=== PATIENT | female | born 1945 | race Caucasian/White ===

== ENCOUNTER 2019-04-17 08:57 | Emergency (ER) | payer MEDICARE ==
[2019-04-17 09:32] VITALS: BP 138/49
--- NOTE | 2019-04-17 10:13 | UC ---
Skin Complaint HPI - HPI Summary HPI Summary: 74 y/o female presents to the urgent care c/o Tick on right bra line towards her back. removed it Claire. She felt it there but didn't think to look. Could have been on up to 1 week. It was engorged when removed. Denies body aches or headache. - History of Current Complaint Chief Complaint: UCSkin Time Seen by Provider: 04/17/19 10:06 Stated Complaint: TICK BITE Hx Obtained From: Patient ?: No - menopausal Onset/Duration: Gradual Onset - 2 days, Resolved - tick removal Skin Exposure Onset/Duration: Days Ago - 1 week possible, she is not sure Timing: Constant Onset Severity: Mild Current Severity: Mild Pain Intensity: 2 Pain Scale Used: 0-10 Numeric Location: Discrete - RT lateral side of upper back Character: Redness Aggravating Factor(s): Touch Alleviating Factor(s): Other - tick removal Associated Signs & Symptoms: Positive: Rash - tick bite in the lateral side or upper back. Negative: Fever, Chills Related History: Possible Reaction to: Insect - tick bite - Allergy/Home Medications Allergies/Adverse Reactions: Allergies Allergy/AdvReac Type Severity Reaction Status Date / Time No Known Allergies Allergy Verified 04/17/19 09:24 Home Medications: Home Medications Allopurinol TAB* [Zyloprim 100 MG TAB*] 100 mg PO DAILY 04/17/19 [History Confirmed 04/17/19] Aspirin EC TAB* [Ecotrin EC Low Dose 81 MG*] 81 mg PO DAILY 04/17/19 [History Confirmed 04/17/19] Gabapentin CAP(*) [Neurontin 300 CAP(*)] 600 mg PO TID 04/17/19 [History Confirmed 04/17/19] Levothyroxine TAB* [Synthroid 88 MCG TAB*] 88 mcg PO DAILY 04/17/19 [History Confirmed 04/17/19] Lisinopril/HCTZ 20/25(NF) [Zestoretic 20/25(NF)] 1 tab PO DAILY 04/17/19 [ History Confirmed 04/17/19] Multivitamins/Minerals TAB* [Theragran/minerals TAB*] 1 tab PO DAILY 04/17/19 [ History Confirmed 04/17/19] Simvastatin 20 mg PO DAILY 04/17/19 [History Confirmed 04/17/19] Sitagliptin Phosphate [Januvia] 100 mg PO DAILY 04/17/19 [History Confirmed 04/30] buPROPion TAB* [Wellbutrin TAB*] 75 mg PO DAILY 04/17/19 [History Confirmed 04/30] rOPINIRole TAB* [Requip TAB*] 0.25 mg PO BID 04/17/19 [History Confirmed ] PMH/Surg Hx/FS Hx/Imm Hx Previously Healthy: Yes Endocrine History: Diabetes, Hypothyroidism, Dyslipidemia Other Endocrine History: GOUT Cardiovascular History: Hypertension - Surgical History Surgical History: Yes Surgery Procedure, Year, and Place: hysterectomy. bilateral cataract - Family History Known Family History: Positive: Cardiac Disease, Hypertension - Social History Occupation: Retired Lives: With Family Alcohol Use: Rare Substance Use Type: None Smoking Status (MU): Former Smoker Length of Time of Smoking/Using Tobacco: quit at age 32 Review of Systems All Other Systems Reviewed And Are Negative: Yes Constitutional: Positive: Negative Skin: Positive: Other - tick bite in the laterals side or Rt upper back Eyes: Positive: Negative ENT: Positive: Negative Respiratory: Positive: Negative Cardiovascular: Positive: Negative Gastrointestinal: Positive: Negative Genitourinary: Positive: Negative Motor: Positive: Negative Neurovascular: Positive: Negative Musculoskeletal: Positive: Negative Neurological: Positive: Negative Psychological: Positive: Negative Is Patient Immunocompromised?: No Physical Exam - Summary Physical Exam Summary: Vital Signs Reviewed: Yes General: well developed, well nourished female sitting in the examining table w/ o any apparent distress. Eyes: Positive: Conjunctiva Clear - PERRLA, EOMI ENT: Positive: Normal ENT inspection, Hearing grossly normal, Pharynx normal, TMs normal Neck: Positive: Supple, Nontender, No Lymphadenopathy Respiratory: Positive: Chest nontender, Lungs clear, Normal breath sounds Cardiovascular: Positive: RRR, No Murmur, Pulses Normal Abdomen Description: Positive: Nontender, No Organomegaly, Soft. Negative: CVA Tenderness (R), CVA Tenderness (L) Bowel Sounds: Positive: Present Musculoskeletal: Positive: Strength Intact, ROM Intact, No Edema Neurological Exam: Normal Psychological Exam: Normal Skin: Positive: rashes - Proximal medial aspect of Left upper arm with tick bite with surrounding erythema, non tender to palpation. tick no longer present , no swelling or drainage observed. Triage Information Reviewed: Yes Vital Signs: Initial Vital Signs Temp 98.2 F 04/17/19 09:25 Pulse 59 04/17/19 09:25 Resp 15 04/17/19 09:25 BP 138/49 04/17/19 09:25 Pulse Ox 100 04/17/19 09:25 Course/Dx - Course Course Of Treatment: the skin cleansing. Antibiotic prophylaxis with Doxycycline given to the patient to prevent lyme Disease.. Pt tolerated well medication. Pt advised to observe the area for the development or Erythema Migrans for upto 30 days following exposure. Advised if he develops fever or erythema Migrans to return to the clinic or PCP for further treatment .Pt understood and agreed with plan of care. - Differential Diagnoses - Skin Complaint Differential Diagnoses: Abscess, Cellulitis, Contact Dermatitis, Local Allergic Reaction, Tick Born Illness, Urticaria, Other - bee sting, insect bite - Diagnoses Provider Diagnosis: Tick bite of back Discharge - Sign-Out/Discharge Documenting (check all that apply): Patient Departure - D/C home All imaging exams completed and their final reports reviewed: No Studies - Discharge Plan Condition: Stable Disposition: HOME Prescriptions: Bacitracin OINTMENT* 1 applic TOPICAL BID #1 tube Patient Education Materials: Tick Bite (ED) Referrals: Tc Robles MD [Primary Care Provider] - 2 Weeks Justin BOGGS,Hipolito Rizvi [Medical Doctor] - Additional Instructions: 1- Please observe the area for the development or Erythema Migrans for upto 30 days following exposure. Components of the tick saliva can cause transient erythema that should not be confused with Erythema Migrans. If you develop the bull's eye rash, fever, joint pains please return to the urgent care or f/u with your PCP or Dr Anderson for further management. Apply Bacitracin oint around tick bite as directed 2-Antibiotic prophylaxis with Doxycycline was given to you today to prevent lyme Disease. Lyme serology can be drawn in 2 weeks with your PCP to r/o Lyme disease since there is probability of negative results at early exposure. - Billing Disposition and Condition Condition: STABLE Disposition: Home
[2019-04-17] MEDS: DOXYcycline CAP(*) 100 MG PO ONE (10:42)
== END 2019-04-17 10:52 | disposition home or self-care (01) ==
LOC: UCCORT 08:57
DX: T63.481A Toxic effect of venom of other arthropod, accidental (unintentional), initial encounter (principal)
CPT/HCPCS: 99212; A9270-GY; G0463